=== PATIENT | male | born 1955 | race Caucasian/White ===

== ENCOUNTER 2023-07-07 09:53 | Inpatient (IN) | payer OTHER ==
[~2023-07-07] VITALS: Ht 188 cm; Wt 59.9 kg
[2023-07-07] MEDS ORDERED: FLUT1BLS15 IH (10:40)
[2023-07-07] MEDS ORDERED: MAGN400O6 PO (10:40)
[2023-07-07] MEDS ORDERED: TIOT18CA3 IH (10:40)
[2023-07-07] MEDS ORDERED: LEVO175T7 PO (10:40)
[2023-07-07] MEDS ORDERED: NA P133E RC (10:40)
[2023-07-07] MEDS ORDERED: BISA10SU11 RC (10:40)
[2023-07-07] MEDS ORDERED: METO25TA4 PO (10:40)
[2023-07-07] MEDS ORDERED: ASPI-1169 PO (10:40)
[2023-07-07] MEDS ORDERED: ACET-868 PO (10:40)
[2023-07-07] MEDS ORDERED: ATOR80TA PO (10:40)
[2023-07-07] MEDS ORDERED: ACET-2605 PO (10:40)
[2023-07-07] MEDS ORDERED: CARB-273 LEFTEYE (10:40)
[2023-07-07] MEDS ORDERED: [UNRECOGNIZED DRUG - OTHER] LEFTEYE (10:40)
[2023-07-07] MEDS ORDERED: RIVA15TA PO (10:40)
[2023-07-07] MEDS ORDERED: ALBU2.5V38 IH (10:40)
[2023-07-07] MEDS: methylPREDNISolone SOD SUCC 125 MG/2ML VIAL IV ONE (11:00)
[2023-07-07] MEDS ORDERED: ALBUTEROL FS 2.5 MG/3 ML VIAL.NEB ONE (11:11)
[2023-07-07 11:16] LABS: BASOPHILS # (AUTO) 0.1 K/uL (0.0-0.2); BASOPHILS % (AUTO) 1.1 % (0.0-2.0); EOSINOPHILS # (AUTO) 0.2 K/uL (0.0-0.7); HEMATOCRIT 29 % (39-51); HEMOGLOBIN 9.5 g/dL (13.5-17.5); LYMPHOCYTES # (AUTO) 0.8 K/uL (0.8-4.8); LYMPHOCYTES % (AUTO) 17.4 % (20.0-44.0); MEAN CORPUSCULAR HEMOGLOBIN 32 PG (26.0-33.0); MEAN CORPUSCULAR HGB CONC 33 g/dl (31.0-36.0); MEAN CORPUSCULAR VOLUME 98 fL (80-96); MONOCYTES # (AUTO) 0.6 K/uL (0.1-1.30); NEUTROPHILS % (AUTO) 63.5 % (43.0-81.0); PLATELET COUNT (AUTO) 198 K/uL (150-450); RED BLOOD CELL COUNT(AUTO) 2.95 MIL/uL (4.5-6.0); RED CELL DISTRIBUTION WIDTH 15.2 % (11.5-15.0); WHITE BLOOD COUNT (AUTO) 4.8 K/uL (4.3-11.0)
[2023-07-07] MEDS: ALBUTEROL FS 2.5 MG/3 ML VIAL.NEB NEB ONE (11:21)
[2023-07-07 11:22] VITALS: O2SAT 92
[2023-07-07 11:33] LABS: LACTIC ACID 1.3 mmol/L (0.4-2.0)
[2023-07-07 11:38] VITALS: O2SAT 92
[2023-07-07 11:40] LABS: CALCIUM, SERUM 7.6 mg/dL (8.5-10.1); CREATININE 1.3 mg/dL (0.6-1.3)
[2023-07-07 11:44] LABS: ALBUMIN 2.6 g/dL (3.4-5.0); BILIRUBIN,DIRECT 0.2 mg/dL (0.0-0.2); BILIRUBIN,TOTAL 0.6 mg/dL (0.2-1.0); TOTAL PROTEIN, SERUM 7.1 g/dL (6.4-8.2)
[2023-07-07] MEDS ORDERED: methylPREDNISolone SOD SUCC 125 MG/2ML VIAL ONE (11:50)
[2023-07-07 14:34] LABS: INR 1.36 (0.91-1.10); PARTIAL THROMBOPLASTIN TIME 47.9 SEC (24.3-34.3); PROTHROMBIN TIME 13.8 SECS (9.2-11.1)
[2023-07-07] MEDS ORDERED: PIPERACI/TAZO 3.375GM/D5W 50ML PB IV ONE (14:53)
[2023-07-07] MEDS ORDERED: ASPIRIN EC 81 MG TABLET.DR PO ONE (14:53)
[2023-07-07] MEDS ORDERED: FUROSEMIDE 40 MG/4 ML VIAL ONE (14:53)
[2023-07-07] MEDS: FUROSEMIDE 40 MG/4 ML VIAL IV ONE (15:01)
[2023-07-07] MEDS: PIPERACILLIN /TAZOBACTAM 3.375 G in IV D5W 50 ML IV ONE (15:01)
[2023-07-07] MEDS: ASPIRIN 81 MG TAB.CHEW PO ONE (15:01)
[2023-07-07] MEDS ORDERED: ACETAMINOPHEN ES 500 MG TABLET PO PRN (15:30)
[2023-07-07] MEDS ORDERED: BISACODYL SUPP (10 MG) 10 MG/SUPP.RECT SUPP.RECT RC PRN (15:30)
[2023-07-07] MEDS ORDERED: NA PHOS,M-B/NA PHOS,DI-BA 1 EA ENEMA RC PRN (15:30)
[2023-07-07] MEDS ORDERED: MAGNESIUM HYDROXIDE 30 ML UDC PO PRN (15:30)
[2023-07-07] MEDS ORDERED: ALBUTEROL FS 2.5 MG/3 ML VIAL.NEB NEB PRN ×2 (15:30)
[2023-07-07] MEDS ORDERED: ACETAMINOPHEN 325 MG TABLET PO PRN (15:30)
[2023-07-07] MEDS ORDERED: IPRATROPIUM NEB FS 0.5 MG/2.5 ML AMPUL.NEB NEB PRN (16:30)
[2023-07-07] MEDS: POLYVINYL ALCOHOL 15 ML BOTTLE LEFTEYE SCH (17:59)
[2023-07-07] MEDS: ASPIRIN 81 MG TAB.CHEW PO SCH (17:59)
[2023-07-07] MEDS: RIVAROXABAN 15 MG TABLET PO SCH (18:00)
[2023-07-07] MEDS: METOPROLOL SUCCINATE 25 MG TAB.SR.24H PO SCH (18:01)
[2023-07-07] MEDS: VANCOMYCIN HCL 1.25 GM in IV D5W 250 ML IV ONE (18:01)
[2023-07-07 20:00] VITALS: BP 106/78; TEMP 97.7; O2SAT 100
[2023-07-07] MEDS: methylPREDNISolone SOD SUCC 40 MG/ML VIAL IV SCH (21:14)
[2023-07-07] MEDS: MEROPENEM 1 G in IV NS 0.9% 100 ML IV SCH (21:14)
[2023-07-07] MEDS: ATORVASTATIN 40 MG TABLET PO SCH (21:15)
[2023-07-08] VITALS: BP 109/66; TEMP 97.5; O2SAT 100
[2023-07-08] MEDS: VANCOMYCIN 750 MG in IV D5W 250 ML IV SCH (02:37)
[2023-07-08 04:00] VITALS: BP 115/71; TEMP 97.5; O2SAT 97
[2023-07-08 07:29] LABS: CALCIUM, SERUM 7.2 mg/dL (8.5-10.1); CREATININE 1.6 mg/dL (0.6-1.3)
[2023-07-08] MEDS: LEVOTHYROXINE SODIUM 175 MCG TABLET PO SCH (07:39)
[2023-07-08 08:00] VITALS: BP 99/69; TEMP 97.4; O2SAT 97
[2023-07-08 08:02] LABS: LACTIC ACID 1.7 mmol/L (0.4-2.0)
[2023-07-08 09:33] LABS: BASOPHILS % (AUTO) 0.2 % (0.0-2.0); HEMATOCRIT 29 % (39-51); HEMOGLOBIN 9.8 g/dL (13.5-17.5); LYMPHOCYTES # (AUTO) 0.7 K/uL (0.8-4.8); LYMPHOCYTES % (AUTO) 8.4 % (20.0-44.0); MEAN CORPUSCULAR HEMOGLOBIN 33 PG (26.0-33.0); MEAN CORPUSCULAR HGB CONC 33 g/dl (31.0-36.0); MEAN CORPUSCULAR VOLUME 98 fL (80-96); MONOCYTES # (AUTO) 0.2 K/uL (0.1-1.30); MONOCYTES % (AUTO) 2.8 % (2.0-12.0); NEUTROPHILS # (AUTO) 6.9 K/uL (1.8-8.9); NEUTROPHILS % (AUTO) 88.6 % (43.0-81.0); PLATELET COUNT (AUTO) 201 K/uL (150-450); RED BLOOD CELL COUNT(AUTO) 2.99 MIL/uL (4.5-6.0); RED CELL DISTRIBUTION WIDTH 15.5 % (11.5-15.0); WHITE BLOOD COUNT (AUTO) 7.8 K/uL (4.3-11.0)
[2023-07-08 09:45] LABS: THYROID STIMULATING HORMONE 14.572 uIU/mL (0.358-3.74)
[2023-07-08 09:53] LABS: THYROID STIMULATING HORMONE 14.05 uIU/mL (0.358-3.74)
[2023-07-08] MEDS: IV LR 1000 ML 1,000 ML IV PRN (10:40)
[2023-07-08 12:00] VITALS: BP 92/65; TEMP 97.2; O2SAT 98
[2023-07-08 16:00] VITALS: BP 97/57; TEMP 97.5; O2SAT 98
[2023-07-08] MEDS ORDERED: IV NS 0.9% 500 ML IV ONE (18:00)
[2023-07-08 20:00] VITALS: BP 93/77; TEMP 97.5; O2SAT 99
[2023-07-09] VITALS: BP 101/60; TEMP 97.9; O2SAT 93
[2023-07-09] MEDS: VANCOMYCIN 1 GM in IV D5W 250 ML IV SCH (00:23)
[2023-07-09 04:00] VITALS: BP 106/61; TEMP 98; O2SAT 99
[2023-07-09 07:38] LABS: CALCIUM, SERUM 7.2 mg/dL (8.5-10.1); CREATININE 1.5 mg/dL (0.6-1.3); POTASSIUM 4.4 mmol/L (3.5-5.1)
[2023-07-09 08:00] VITALS: BP 92/63; TEMP 98.2; O2SAT 96
[2023-07-09] MEDS: LEVOTHYROXINE SODIUM 100 MCG TABLET PO SCH (08:00)
[2023-07-09 12:00] VITALS: BP 97/57; TEMP 98.5; O2SAT 99
[2023-07-09] MEDS: methylPREDNISolone SOD SUCC 40 MG/ML VIAL IV SCH (12:10)
[2023-07-09] MEDS: ENSURE ENLIVE 237 ML LIQUID (VANILLA) PO SCH (12:11)
[2023-07-09 16:00] VITALS: BP 105/64; TEMP 98.7; O2SAT 96
[2023-07-09] MEDS: LEVOFLOXACIN 750 MG /D5W 150ML 750 MG in PREMIX 1 EA IV SCH (17:00)
[2023-07-09] MEDS: METOPROLOL SUCCINATE 25 MG TAB.SR.24H PO SCH (17:01)
[2023-07-09 20:00] VITALS: BP 90/68; TEMP 98.1; O2SAT 96
[2023-07-09] MEDS ORDERED: GUAIFENESIN 300 MG/15 ML UDC PO PRN (21:30)
[2023-07-10] VITALS: BP 92/68; TEMP 98.1; O2SAT 96
[2023-07-10 04:00] VITALS: BP 101/63; TEMP 98.3; O2SAT 96
[2023-07-10 08:13] LABS: CREATININE 1.4 mg/dL (0.6-1.3); POTASSIUM 4.9 mmol/L (3.5-5.1)
[2023-07-10 08:22] VITALS: BP 106/74; TEMP 97.5; O2SAT 98
[2023-07-10 08:23] LABS: CALCIUM, SERUM 7.2 mg/dL (8.5-10.1)
[2023-07-10] MEDS ORDERED: METH4TAB17 PO (08:41)
[2023-07-10] MEDS ORDERED: LEVO25TA7 GT (08:41)
[2023-07-10] MEDS ORDERED: LEVO250T59 PO (08:41)
[2023-07-10] MEDS ORDERED: IV NS 0.9% 500 ML IV ONE (09:00)
[2023-07-10] MEDS: METOPROLOL TARTRATE 25 MG TABLET PO PRN (09:17)
[2023-07-10 12:00] VITALS: BP 109/76; TEMP 97.3; O2SAT 100
[2023-07-10 16:00] VITALS: BP 111/80; TEMP 97.6; O2SAT 93
== END 2023-07-10 20:50 | DRG 190 ==
LOC: ER 09:55 → TELE-TD 15:32 → TELE1 07-08 13:08 → MEDSG1 07-10 10:54
PROVIDERS: ADMIT Internal Medicine; ATTEND Internal Medicine
DX: J44.1 Chronic obstructive pulmonary disease with (acute) exacerbation (principal); I21.A1 Myocardial infarction type 2; J96.20 Acute and chronic respiratory failure, unspecified whether with hypoxia or hypercapnia; J15.9 Unspecified bacterial pneumonia; L89.894 Pressure ulcer of other site, stage 4; I48.20 Chronic atrial fibrillation, unspecified; N18.4 Chronic kidney disease, stage 4 (severe); N17.9 Acute kidney failure, unspecified; M86.671 Other chronic osteomyelitis, right ankle and foot; J44.0 Chronic obstructive pulmonary disease with (acute) lower respiratory infection; D64.9 Anemia, unspecified; E03.9 Hypothyroidism, unspecified; E78.5 Hyperlipidemia, unspecified; I25.10 Atherosclerotic heart disease of native coronary artery without angina pectoris; I50.9 Heart failure, unspecified; I73.9 Peripheral vascular disease, unspecified; Z79.01 Long term (current) use of anticoagulants; Z79.82 Long term (current) use of aspirin; Z86.711 Personal history of pulmonary embolism; Z87.891 Personal history of nicotine dependence; Z86.73 Personal history of transient ischemic attack (TIA), and cerebral infarction without residual deficits; Z88.0 Allergy status to penicillin; Z99.81 Dependence on supplemental oxygen; Z20.822 Contact with and (suspected) exposure to COVID-19; M20.41 Other hammer toe(s) (acquired), right foot; I95.9 Hypotension, unspecified
CPT/HCPCS: 36415; 71045-TC; 80048-TC; 80061-TC; 80076-TC; 80202-TC; 82728-TC; 83540-TC; 83605-TC; 83880; 84439-TC; 84443-TC; 84484-TC; 85025-TC; 85730-TC; 87040-TC; 93307-TC; 94799-TC; 97110-TC; 97116-TC; 97530-TC; A4216; A4223; G0378; J1940; J1956; J2185; J2543; J2920; J2930; J3370; J3371; J3490; J7030; J7040; J7060; J7120